=== PATIENT | female | born 1960 | race African-American/Black ===

== ENCOUNTER 2018-05-12 08:38 | Emergency (ER) | payer OTHER ==
[~2018-05-12] VITALS: Ht 170.2 cm; Wt 94.3 kg
[2018-05-12 09:03] VITALS: BP 120/72
[2018-05-12] MEDS ORDERED: Ketorolac 30mg Inj IM ONE (09:15)
[2018-05-12] MEDS ORDERED: Methocarbamol 750mg tab ORAL ONE (09:15)
--- NOTE | 2018-05-12 10:31 | Diagnostic Imaging Report ---
Indication: Headache Technique: Contiguous 5 mm thick transaxial imaging of the head obtained in a Siemens Sensation [address] scanner. Soft tissue and bone windows generated. Automatic Exposure Control was utilized. Total Dose length Product (DLP): 1417.[address] Dose Index Volume (CTDIvol): 70.38 mGy Comparison: none Findings: The size and configuration of the cortical sulci, basal cisterns, and ventricles are within normal limits for age. There is no mass effect, midline shift, or edema identified. There is no evidence of acute hemorrhage or abnormal intra-axial or extra-axial fluid collections. The bones and soft tissues are unremarkable. Paranasal sinuses are opacified. Impression: No mass effect, edema or acute bleed. Sinusitis The CT scanner at [facility] is accredited by the [employer] and the scans are performed using dose optimization techniques as appropriate to a performed exam including Automatic Exposure control.
--- NOTE | 2018-05-12 10:33 | Diagnostic Imaging Report ---
Indication: Neck pain. Technique: Continuous helical imaging of the cervical spine was obtained transaxially from the skull base to the upper thoracic spine. 2-D coronal and sagittal reformatted images were obtained. Automatic Exposure Control was utilized. Total Dose length Product (DLP): 472.[address] Dose Index Volume (CTDIvol): 20.35 mGy Comparison: None Findings: There is no acute fracture or malalignment identified. There is no soft tissue swelling identified. There is extensive ossification of the posterior longitudinal ligament from C1 through lower end of C5 resulting in significant stenosis of the central canal. Moderate uncovertebral arthritis is demonstrated at multiple levels. Some of the intervertebral discs show narrowing and osteophytes. 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 Moderate spondylosis The CT scanner at [facility] is accredited by the [employer] and the scans are performed using dose optimization techniques as appropriate to a performed exam including Automatic Exposure control.
[2018-05-12] MEDS ORDERED: ROBAXIN-750750 MG PO (10:39)
[2018-05-12] MEDS ORDERED: LIDODERM700 M1 TOPIC (10:39)
[2018-05-12] MEDS ORDERED: IBUPROFEN600 MG ORAL (10:39)
[2018-05-12] MEDS ORDERED: GABAPENTIN100 MG ORAL (10:39)
[2018-05-12 10:45] VITALS: BP 120/70
--- NOTE | 2018-05-12 10:54 | Emergency Room Report ---
History of Present Illness General Chief Complaint: Neck Pain Source: Patient Present Illness HPI 58-year-old female presents ED complaining of neck pain. States she's been having this pain for several months now. Related to old work injury. States she is now having tingling sensation radiating to her right arm. She is scared she does not know why she is having the symptoms. States she's been seeing her PMD and has had acupuncture and physical therapy, but no treatment at this time. Pain is dull, 5 out of 10, nonradiating. Denies slurred speech or facial droop. Denies headache. Denies photophobia. Denies arm weakness. Denies chest pain or shortness of breath. No other aggravating relieving factors. Denies any other associated symptoms Allergies: Coded Allergies: SULFA (SULFONAMIDE ANTIBIOTICS) (Verified Allergy, Unknown, 05/12/18) Patient History Past Medical History: none Past Surgical History: none Pertinent Family History: none Social History: Denies: smoking, alcohol use, drug use Now: No Immunizations: UTD Reviewed Nursing Documentation: PMH: Agreed; PSxH: Agreed Nursing Documentation-PMH Past Medical History: No History, Except For Review of Systems All Other Systems: negative except mentioned in HPI Physical Exam Vital Signs Date Time Temp Pulse Resp B/P (MAP) Pulse Ox O2 Delivery O2 Flow Rate FiO2 05/12/18 08:43 97.7 79 18 123/69 98 Room Air Sp02 EP Interpretation: reviewed, normal General Appearance: no apparent distress, alert, GCS 15, non-toxic Head: normocephalic Eyes: bilateral eye normal inspection, bilateral eye PERRL ENT: hearing grossly normal, normal pharynx, no angioedema, normal voice Neck: full range of motion, no meningismus, no bony tend, supple/symm/no masses , tender lateral Respiratory: chest non-tender, lungs clear, normal breath sounds, speaking full sentences Cardiovascular #1: regular rate, rhythm, no edema Gastrointestinal: normal inspection Rectal: deferred Genitourinary: no CVA tenderness Musculoskeletal: back normal, gait/station normal, normal range of motion, non- tender Neurologic: alert, oriented x3, responsive, well logging captain mud analysis III-XII nml as tested, motor strength/tone normal, sensory intact, cerebellar normal, normal gait, speech normal Psychiatric: normal inspection Skin: normal inspection Lymphatic: normal inspection Medical Decision Making Diagnostic Impression: Primary Impression: Cervical radiculopathy ER Course Hospital Course 58-year-old F presents to ED complaining of neck pain with tingling down the arm for months Differential diagnoses include: Fracture, dislocation, sprain, contusion Clinical course Patient placed on stretcher. After initial history and physical, I ordered pain medications and CT Head, Cspine CT head unremarkable. CT C-spine shows significant central stenosis with multilevel degenerative changes. Clinically consistent with cervical radiculopathy. Patient has 5 out of 5 motor strength in her extremities. No slurred speech or facial droop. No cardiac risk factors suggestive of stroke. Discussed findings with patient. Likely related to the neck injury and is progressing. Recommend that she continues physical therapy with her PMD and be evaluated by back/spine. We will continue anti-inflammatories but will add Robaxin, Lidoderm patch and gabapentin Diagnosis - cervical radiculopathy Stable and discharged to home with prescription for Motrin, robaxin, lidoderm, gabapentin. weight bear as tolerated. Followup with PMD. Return to ED if symptoms recur or worsen CT/MRI/US Diagnostic Results CT/MRI/US Diagnostic Results #1: Imaging Test Ordered: CT Head Impression no acute process CT/MRI/US Diagnostic Results #2: Imaging Test Ordered: CT C spine Impression There is extensive ossification of the posterior longitudinal ligament from C1 through lower end of C5 resulting in significant stenosis of the central canal. Moderate uncovertebral arthritis is demonstrated at multiple levels. Some of the intervertebral discs show narrowing and osteophytes. Last Vital Signs Date Time Temp Pulse Resp B/P (MAP) Pulse Ox O2 Delivery O2 Flow Rate FiO2 05/12/18 10:45 98.0 75 16 120/70 99 Room Air Status: improved Disposition: HOME, SELF-CARE Condition: Stable Scripts Gabapentin* (GABAPENTIN*) 100 Mg Capsule 100 MG ORAL THREE TIMES A DAY, #30 CAP Prov: Shaun Azul MD 05/12/18 Ibuprofen* (MOTRIN*) 600 Mg Tablet 600 MG ORAL Q8H PRN for For Pain, #30 TAB 0 Refills Prov: Shaun Azul MD 05/12/18 Lidocaine (Lidoderm) 1 Each Adh..patch 1 PATCH TOPIC DAILY, #7 PATCH 0 Refills Patch(es) may remain in place for up to 12 hours in any 24-hour period. Prov: Shaun Azul MD 05/12/18 Methocarbamol* (ROBAXIN-750*) 750 Mg Tablet 750 MG PO TID, #21 TAB 0 Refills Prov: Shaun Azul MD 05/12/18 Patient Instructions: Cervical Radiculopathy, [id number] Shaun Azul MD May 12, 2018 10:54
== END 2018-05-12 10:47 | disposition home or self-care (01) ==
LOC: EMR 09:15
DX: M54.12 Radiculopathy, cervical region (principal); Z88.2 Allergy status to sulfonamides
CPT/HCPCS: 70450; 72125; 96372; 99284; J1885